=== PATIENT | male | born 1990 | race Caucasian/White ===

== ENCOUNTER 2018-07-16 16:48 | Emergency (ER) | payer OTHER, MEDICAID ==
[~2018-07-16] VITALS: Ht 165.1 cm; Wt 64.5 kg
[~2018-07-16 16:48] MED LIST: AMOX500C2 PO
[2018-07-16 17:13] VITALS: BP 127/83
[2018-07-16] MEDS ORDERED: IBUP-1984 PO (17:31)
== END 2018-07-16 17:38 | disposition home or self-care (01) ==
LOC: ER 16:48
DX: S61.012A Laceration without foreign body of left thumb without damage to nail, initial encounter (principal); F12.90 Cannabis use, unspecified, uncomplicated; Z79.2 Long term (current) use of antibiotics; W26.0XXA Contact with knife, initial encounter; Y93.89 Activity, other specified; Y92.89 Other specified places as the place of occurrence of the external cause; Y99.8 Other external cause status
CPT/HCPCS: 99283

== ENCOUNTER 2019-09-30 11:50 | Emergency (ER) | payer MEDICAID ==
[~2019-09-30] VITALS: Ht 167.6 cm; Wt 61.5 kg
[2019-09-30 12:50] LABS: BASOPHILS % (AUTO) 0.4 % (0-1); EOSINOPHILS % (AUTO) 0.7 % (0-6); HEMATOCRIT 44.2 % (42.0-52.0); HEMOGLOBIN 15.5 g/dl (14.0-17.9); LYMPHOCYTES # (AUTO) 1.6 X10'3 (1.1-4.8); LYMPHOCYTES % (AUTO) 22.6 % (21-51); MEAN CORPUSCULAR VOLUME 88.6 FL (78-98); MEAN PLATELET VOLUME 7.9 FL (7.4-10.4); MONOCYTES # (AUTO) 0.5 X10'3 (0-0.9); MONOCYTES % (AUTO) 7.5 % (2-12); NEUTROPHILS # (AUTO) 4.7 X10'3 (1.8-7.7); NEUTROPHILS % (AUTO) 68.8 % (42-75); PLATELET COUNT 212 X10'3 (140-440); RED BLOOD COUNT 4.99 X10'6 (4.70-6.10); RED CELL DISTRIBUTION WIDTH 13.2 % (11.5-14.5); WHITE BLOOD COUNT 6.9 X10'3 (4.5-11.0)
[2019-09-30 13:26] LABS: ALANINE AMINOTRANSFERASE 34 U/L (12-78); ALBUMIN 4.5 G/DL (3.4-5.0); ALBUMIN/GLOBULIN RATIO 1.8 (1.1-1.5); ALKALINE PHOSPHATASE 58 IU/L (46-116); ANION GAP 8 (8-16); ASPARTATE AMINO TRANSFERASE 21 U/L (10-37); BILIRUBIN,TOTAL 0.5 MG/DL (0.1-1.0); BLOOD UREA NITROGEN 14 MG/DL (7-18); BUN/CREATININE RATIO 16.5 (5.4-32.0); CALCIUM 9.4 MG/DL (8.5-10.1); CHLORIDE 106 MMOL/L (99-107); CREATININE 0.85 MG/DL (0.60-1.10); GLUCOSE 88 MG/DL (70-104); POTASSIUM 3.7 MMOL/L (3.5-5.1); SODIUM 145 MMOL/L (135-145); eGFR > 90 ML/MIN
[2019-09-30 15:40] VITALS: BP 123/76
== END 2019-09-30 15:42 | disposition home or self-care (01) ==
LOC: ER 11:50
DX: R00.2 Palpitations (principal); R42 Dizziness and giddiness; F12.90 Cannabis use, unspecified, uncomplicated; Z79.2 Long term (current) use of antibiotics
CPT/HCPCS: 36415; 71045; 80053; 84484; 85025; 93005; 99284

== ENCOUNTER 2021-12-18 08:06 | Emergency (ER) | payer BC, MEDICAID ==
[~2021-12-18] VITALS: Ht 165.1 cm; Wt 63.2 kg
[2021-12-18 08:11] VITALS: BP 131/89
[2021-12-18 08:34] LABS: BASOPHILS % (AUTO) 0.2 % (0-1); EOSINOPHILS % (AUTO) 0.1 % (0-6); HEMATOCRIT 47.2 % (42.0-52.0); HEMOGLOBIN 16.3 g/dl (14.0-17.9); LYMPHOCYTES # (AUTO) 1.1 X10'3 (1.1-4.8); LYMPHOCYTES % (AUTO) 17.6 % (21-51); MEAN CORPUSCULAR HGB CONC 34.5 g/dL (33.0-36.5); MEAN CORPUSCULAR VOLUME 87.1 FL (78-98); MEAN PLATELET VOLUME 7.9 FL (7.4-10.4); MONOCYTES # (AUTO) 0.6 X10'3 (0-0.9); MONOCYTES % (AUTO) 9.9 % (2-12); NEUTROPHILS # (AUTO) 4.6 X10'3 (1.8-7.7); NEUTROPHILS % (AUTO) 72.2 % (42-75); PLATELET COUNT 188 X10'3 (140-440); RED BLOOD COUNT 5.42 X10'6 (4.70-6.10); WHITE BLOOD COUNT 6.4 X10'3 (4.5-11.0)
--- NOTE | 2021-12-18 08:37 | NUR ---
Patient reports congestions, runny nose, and fatigue x 7 days with history of bronchitis and taking azithromycin x 5 days without relief.
[2021-12-18 08:48] LABS: ALANINE AMINOTRANSFERASE 39 U/L (12-78); ALBUMIN 4.4 G/DL (3.4-5.0); ALBUMIN/GLOBULIN RATIO 1.4 (1.1-1.5); ALKALINE PHOSPHATASE 63 IU/L (46-116); ANION GAP 9 (8-16); ASPARTATE AMINO TRANSFERASE 23 U/L (10-37); BILIRUBIN,TOTAL 0.7 MG/DL (0.1-1.0); BLOOD UREA NITROGEN 12 MG/DL (7-18); BUN/CREATININE RATIO 13.2 (5.4-32.0); CALCIUM 8.9 MG/DL (8.5-10.1); CHLORIDE 107 MMOL/L (99-107); CREATININE 0.91 MG/DL (0.60-1.10); GLUCOSE 96 MG/DL (70-104); POTASSIUM 4.2 MMOL/L (3.5-5.1); SODIUM 144 MMOL/L (135-145); TOTAL CARBON DIOXIDE 27.9 MMOL/L (24-32); TOTAL PROTEIN 7.5 G/DL (6.4-8.2); eGFR > 90 ML/MIN
[2021-12-18] MEDS ORDERED: dexamethasone sod phosphate 10mg/ml inj PO STA (09:27)
== END 2021-12-18 11:23 | disposition home or self-care (01) ==
LOC: ER 08:06
DX: B34.9 Viral infection, unspecified (principal); Z20.822 Contact with and (suspected) exposure to COVID-19; R51.9 Headache, unspecified; R05.9 Cough, unspecified; R06.02 Shortness of breath; R50.9 Fever, unspecified; F12.90 Cannabis use, unspecified, uncomplicated; Z72.89 Other problems related to lifestyle; Z79.2 Long term (current) use of antibiotics
CPT/HCPCS: 36415; 71046; 80053; 83880; 85025; 87502; 87503; 87635; 99284; C9803; J1100